=== PATIENT | male | born 2000 | race Caucasian/White ===

== ENCOUNTER 2018-05-13 11:28 | Inpatient (IN) | payer OTHER ==
[2018-05-13 14:15] VITALS: BMI 23.5
--- NOTE | 2018-05-13 20:02 | HP ---
COWS - Scale Resting Pulse: 0= OR 80 or Below Sweatin=Flushed/Facial Moisture Restless Observation: 1= Difficult to Sit Still Pupil Size: 1= Pupils >than Normal Bone or Joint Aches: 1= Mild Discomfort Runny Nose/ Eye Tearin= Runny Nose/Eyes GI Upset > 30mins: 1= Stomach Cramp Tremor Observation: 2= Slight Tremor Visible Yawning Observation: 0= None Anxiety or Irritability: 2=Irritable/Anxious Goose Flesh Skin: 0=Smooth Skin COWS Score: 12 CIWA Score - Admission Criteria OASAS Guidelines: Admission for Medically Managed Detox: Requires at least one of the followin. CIWA greater than 12 2. Seizures within the past 24 hours 3. Delirium tremens within the past 24 hours 4. Hallucinations within the past 24 hours 5. Acute intervention needed for co occurring medical disorder 6. Acute intervention needed for co occurring psychiatric disorder 7. Severe withdrawal that cannot be handled at a lower level of care (continued vomiting, continued diarrhea, abnormal vital signs) requiring intravenous medication and/or fluids 8. Admission ROS S - HPI Chief Complaint: DEPENDENT ON HEROIN, XANAX AND COCAINE ON 60 MGS. OF [facility] - LAST DOSE THIS AM Allergies/Adverse Reactions: Allergies Allergy/AdvReac Type Severity Reaction Status Date / Time No Known Allergies Allergy Verified 05/13/18 17:12 History of Present Illness: THE PT. IS REQUESTING ADMISSION TO THE DETOX UNIT AND CAME FOR H AND PE Exam Limitations: No Limitations - Ebola screening Have you traveled outside of the country in the last 21 days: No (N) Have you had contact with anyone from an Ebola affected area: No Have you been sick,other than usual withdrawal symptoms: No Do you have a fever: No - Review of Systems Constitutional: See HPI, Malaise EENT: reports: See HPI Respiratory: reports: See HPI Cardiac: reports: See HPI GI: reports: See HPI, Nausea, Abdominal cramping : reports: See HPI Musculoskeletal: reports: See HPI, Muscle Pain, Muscle Weakness Neuro: reports: See HPI, Headache, Tremors, Weakness Endocrine: reports: See HPI Hematology: reports: See HPI Psychiatric: reports: Judgement Intact, Orientated x3, Anxious, Depressed Patient History - Patient Medical History Hx Asthma: No Hx Cardiac Disorders: No Hx Hypertension: No Hx Seizures: No Hx Diabetes: No Hx Gastrointestinal Disorders: No Hx Sexually Transmitted Disorders: No Hx Human Immunodeficiency Virus (HIV): No Hx Hepatitis C: No Hx Depression: No Hx Suicide Attempt: No - Patient Surgical History Past Surgical History: No - Smoking Cessation Smoking history: Current every day smoker Have you smoked in the past 12 months: Yes Aproximately how many cigarettes per day: 10 Hx Chewing Tobacco Use: No Initiated information on smoking cessation: Yes 'Breaking Loose' booklet given: 05/13/18 - Substance & Tx. History Hx Alcohol Use: No Hx Substance Use: Yes Substance Use Type: Cocaine, Heroin, Tranquilizers Hx Substance Use Treatment: Yes - Substances Abused Alprazolam (Xanax) Route: Oral Frequency: Daily Amount used: 8-16MG Age of first use: 16 Date of Last Use: 05/13/18 Heroin Route: Injection Frequency: Daily Amount used: 7 BAGS Age of first use: 15 Date of Last Use: 05/13/18 Cocaine Route: Injection Frequency: 1-2 times per week Amount used: 1 BAG/D Age of first use: 18 Date of Last Use: 05/06/18 Family Disease History - Family Disease History Family History: Denies Admission Physical Exam BHS - Vital Signs Vital Signs: Vital Signs - 24 hr 05/13/18 14:01 Temperature 97.4 F L Pulse Rate 59 L Respiratory 18 Rate Blood Pressure 107/57 L - Physical General Appearance: Yes: Appropriately Dressed, Tremorous, Sweating, Anxious HEENTM: Yes: Hearing grossly Normal, Normocephalic, Normal Voice, MRAY, Pharynx Normal Respiratory: Yes: Chest Non-Tender, Lungs Clear, Normal Breath Sounds, No Respiratory Distress, No Accessory Muscle Use Neck: Yes: No masses,lesions,Nodules, Supple, Trachea in good position Breast: Yes: Breast Exam Deferred, Axillae without masses Cardiology: Yes: Regular Rhythm, S1, S2, Bradycardia Abdominal: Yes: Normal Bowel Sounds, Non Tender, Flat, Soft Back: Yes: Normal Inspection Extremities: Yes: Normal Capillary Refill, Normal Range of Motion, Non-Tender, Tremors Neurological: Yes: clerk supervisor II-XII NML intact, Fully Oriented, Alert, Motor Strength 5/5, Normal Response, Depressed Affect Integumentary: Yes: Normal Color, Warm, Moist, Track Deleon Lymphatic: Yes: Within Normal Limits - Addiitonal Findings: NEEDLE TRACKS ON BOTH UPPER LIMBS+ - Diagnostic (1) Heroin dependence Current Visit: Yes Status: Chronic (2) Benzodiazepine dependence Current Visit: Yes Status: Chronic (3) Cocaine dependence Current Visit: Yes Status: Chronic Qualifiers: Substance use status: uncomplicated Qualified Code(s): F14.20 - Cocaine dependence, uncomplicated (4) Methadone maintenance therapy patient Current Visit: Yes Status: Chronic (5) Cigarette nicotine dependence Current Visit: Yes Status: Acute Qualifiers: Substance use status: uncomplicated Qualified Code(s): F17.210 - Nicotine dependence, cigarettes, uncomplicated Cleared for Admission [facility] - Detox or Rehab [facility] Level of Care: Medically Supervised Detox Regimen/Protocol: Valium BHS Breath Alcohol Content Breath Alcohol Content: 0 Urine Drug Screen - Results Drug Screen Negative: No Urine Drug Screen Results: KIANNA-Cocaine, OPI-Opiates, BZO-Benzodiazepines, MTD- Methadone, FEN-Fentanyl Inpatient Rehab Admission - Rehab Decision to Admit Inpatient rehab admission?: No
[2018-05-13] MEDS ORDERED: MAGNESIUM CITRATE 300 ML BOTTLE PO PRN (20:08)
[2018-05-13] MEDS ORDERED: guaiFENesin/D-METHORPHAN HB 10 ML UNIT-DOSE CUPS PO PRN (20:08)
[2018-05-13] MEDS ORDERED: MAG HYDROX/AL HYDROX/SIMETH 30 ML UNIT-DOSE CUP PO PRN (20:08)
[2018-05-13] MEDS ORDERED: P-EPHED 60MG/TRIPROLIDI 2.5MG TABLET PO PRN (20:08)
[2018-05-13] MEDS ORDERED: MENTHOL/PHENOL 1 EACH UD MM PRN (20:08)
[2018-05-13] MEDS ORDERED: IBUPROFEN 400 MG TABLET (FP) PO PRN (20:08)
[2018-05-13] MEDS ORDERED: hydrOXYzine PAMOATE 25 MG CAPSULE (FP) PO PRN (20:08)
[2018-05-13] MEDS ORDERED: MAGNESIUM HYDROX 2400MG/30ML ORAL SUSPENSION 30 ML CUP PO PRN (20:08)
[2018-05-13] MEDS ORDERED: ACETAMINOPHEN 325 MG TABLET (FP) PO PRN (20:08)
[2018-05-13] MEDS ORDERED: LOPERAMIDE HCL 2 MG CAPSULE PO PRN (20:08)
[2018-05-13] MEDS ORDERED: diazePAM 5 MG TABLET PO ONE (21:00)
[2018-05-13] MEDS: diazePAM 5 MG TABLET PO SCH (21:54)
[2018-05-13] MEDS: THIAMINE HCL 100 MG TABLET (FP) PO SCH (22:23)
[2018-05-14] MEDS: diazePAM 5 MG TABLET PO SCH ×3 (06:48→22:13)
[2018-05-14] MEDS ORDERED: METHADONE HCL 10 MG TABLET PO SCH (07:30)
[2018-05-14] MEDS ORDERED: METHADONE HCL 40 MG DISPERSABLE TABLET ONE (08:48)
[2018-05-14] MEDS ORDERED: METHADONE HCL 10 MG TABLET ONE (08:48)
[2018-05-14] MEDS: METHADONE 40 MG, METHADONE 20 MG PO SCH (09:02)
--- NOTE | 2018-05-14 09:50 | PN ---
[facility] CIWA - CIWA Score Nausea/Vomitin-Mild Nausea/No Vomiting Muscle Tremors: 2 Anxiety: 3 Agitation: 3 Paroxysmal Sweats: 1-Minimal Palms Moist Orientation: 1-Uncertain about Date Tacttile Disturbances: 0-None Auditory Disturbances: 0-None Visual Disturbances: 0-None Headache: 0-None Present CIWA-Ar Total Score: 11 S Progress Note (SOAP) Subjective: methadone 60 mg verified given as ordered anxiety restlessness irritable trouble sleep at night Objective: 05/14/18 09:53 Vital Signs Temperature 97.3 F L 05/14/18 09:21 Pulse Rate 80 05/14/18 09:21 Respiratory Rate 18 05/14/18 09:21 Blood Pressure 99/53 L 05/14/18 09:21 O2 Sat by Pulse Oximetry (%) 05/14/18 09:53 lab pending 05/14/18 09:54 increase oral fluid to 2-3 L daily Assessment: 05/14/18 09:54 withdrawal sx Plan: continue detox
[2018-05-14 09:53] LABS: HEMATOCRIT 38.6 % (35.4-49); HEMOGLOBIN 13.1 GM/dL (11.7-16.9); MCH 28.9 pg (25.7-33.7); MCHC 33.9 g/dl (32.0-35.9); MEAN CELL VOLUME 85.5 fl (80-96); MEAN PLT VOLUME 7.5 fl (7.5-11.1); PLATELET COUNT 195 K/MM3 (134-434); RBC 4.51 M/mm3 (4.00-5.60); RDW 12.8 % (11.9-15.9); WHITE BLOOD COUNT 4.4 K/mm3 (4.0-10.0)
[2018-05-14 10:07] LABS: ALBUMIN 3.5 g/dl (3.4-5.0); ALK PHOS 86 U/L (45-117); ANION GAP 7 MMOL/L (8-16); BILIRUBIN,TOTAL 0.5 mg/dL (0.2-1); BLOOD UREA NITROGEN 11 mg/dL (7-18); CALCIUM 9.1 mg/dL (8.5-10.1); CHLORIDE 107 mmol/L (98-107); CO2 26 mmol/L (21-32); CREATININE 0.8 mg/dL (0.55-1.3); GLUCOSE,RANDOM 91 mg/dL (74-106); POTASSIUM 4.1 mmol/L (3.5-5.1); SGOT/AST 27 U/L (15-37); SGPT/ALT 26 U/L (13-61); SODIUM 139 mmol/L (136-145); TOT PROT 6.5 g/dl (6.4-8.2)
[2018-05-14] MEDS: PRENATAL VITAMINS W/ FOLIC ACID TABLET (FP) PO SCH (10:15)
[2018-05-14] MEDS: NICOTINE 14 MG/24 HOURS TOPICAL PATCH TD SCH (10:17)
[2018-05-14] MEDS: NICOTINE POLACRILEX 2 MG GUM BC PRN (10:29)
[2018-05-14] MEDS: diazePAM 5 MG TABLET PO PRN (20:10)
[2018-05-14] MEDS: THIAMINE HCL 100 MG TABLET (FP) PO SCH (22:13)
[2018-05-14] MEDS: MELATONIN 5 MG TABLETS PO PRN (22:13)
[2018-05-15] MEDS ORDERED: METHADONE HCL 10 MG TABLET ONE (04:42)
[2018-05-15] MEDS ORDERED: METHADONE HCL 40 MG DISPERSABLE TABLET ONE (04:43)
[2018-05-15] MEDS: diazePAM 5 MG TABLET PO PRN ×3 (06:05→17:29)
[2018-05-15] MEDS: METHADONE 40 MG, METHADONE 20 MG PO SCH (06:05)
[2018-05-15] MEDS: NICOTINE POLACRILEX 2 MG GUM BC PRN ×2 (07:19→17:31)
--- NOTE | 2018-05-15 10:19 | PN ---
[facility] CIWA - CIWA Score Nausea/Vomitin-No Nausea/No Vomiting Muscle Tremors: 2 Anxiety: 3 Agitation: 3 Paroxysmal Sweats: 1-Minimal Palms Moist Orientation: 0-Oriented Tacttile Disturbances: 0-None Auditory Disturbances: 0-None Visual Disturbances: 0-None Headache: 1-Very Mild CIWA-Ar Total Score: 10 S Progress Note (SOAP) Subjective: restlessness anxiety irritable tremor Objective: 05/15/18 10:18 Vital Signs Temperature 98.8 F 05/15/18 09:20 Pulse Rate 74 05/15/18 09:20 Respiratory Rate 20 05/15/18 09:20 Blood Pressure 113/52 L 05/15/18 09:20 O2 Sat by Pulse Oximetry (%) Laboratory Last Values WBC 4.4 K/mm3 (4.0-10.0) 05/14/18 07:50 RBC 4.51 M/mm3 (4.00-5.60) 05/14/18 07:50 Hgb 13.1 GM/dL (11.7-16.9) 05/14/18 07:50 Hct 38.6 % (35.4-49) 05/14/18 07:50 MCV 85.5 fl (80-96) 05/14/18 07:50 MCH 28.9 pg (25.7-33.7) 05/14/18 07:50 MCHC 33.9 g/dl (32.0-35.9) 05/14/18 07:50 RDW 12.8 % (11.9-15.9) 05/14/18 07:50 Plt Count 195 K/MM3 (134-434) 05/14/18 07:50 MPV 7.5 fl (7.5-11.1) 05/14/18 07:50 Sodium 139 mmol/L (136-145) 05/14/18 07:50 Potassium 4.1 mmol/L (3.5-5.1) 05/14/18 07:50 Chloride 107 mmol/L (98-107) 05/14/18 07:50 Carbon Dioxide 26 mmol/L (21-32) 05/14/18 07:50 Anion Gap 7 MMOL/L (8-16) L 05/14/18 07:50 BUN 11 mg/dL (7-18) 05/14/18 07:50 Creatinine 0.8 mg/dL (0.55-1.3) 05/14/18 07:50 Creat Clearance w eGFR > 60 (>60) 05/14/18 07:50 Random Glucose 91 mg/dL (74-106) 05/14/18 07:50 Calcium 9.1 mg/dL (8.5-10.1) 05/14/18 07:50 Total Bilirubin 0.5 mg/dL (0.2-1) 05/14/18 07:50 AST 27 U/L (15-37) 05/14/18 07:50 ALT 26 U/L (13-61) 05/14/18 07:50 Alkaline Phosphatase 86 U/L (45-117) 05/14/18 07:50 Total Protein 6.5 g/dl (6.4-8.2) 05/14/18 07:50 Albumin 3.5 g/dl (3.4-5.0) 05/14/18 07:50 RPR Titer Nonreactive (NONREACTIVE) 05/14/18 07:50 lab noted Assessment: 05/15/18 10:18 banzo withdrawal sx Plan: continue banzo detox
[2018-05-15] MEDS: diazePAM 5 MG TABLET PO SCH ×2 (10:35→22:04)
[2018-05-15] MEDS: PRENATAL VITAMINS W/ FOLIC ACID TABLET (FP) PO SCH (10:35)
[2018-05-15] MEDS: NICOTINE 14 MG/24 HOURS TOPICAL PATCH TD SCH (10:36)
[2018-05-15] MEDS: THIAMINE HCL 100 MG TABLET (FP) PO SCH (22:05)
[2018-05-15] MEDS: MELATONIN 5 MG TABLETS PO PRN (22:06)
[2018-05-16] MEDS ORDERED: METHADONE HCL 10 MG TABLET ONE (04:12)
[2018-05-16] MEDS ORDERED: METHADONE HCL 40 MG DISPERSABLE TABLET ONE (04:12)
[2018-05-16] MEDS: diazePAM 5 MG TABLET PO PRN ×3 (04:25→12:46)
[2018-05-16] MEDS: METHADONE 40 MG, METHADONE 20 MG PO SCH (05:16)
--- NOTE | 2018-05-16 09:55 | PN ---
S CIWA - CIWA Score Nausea/Vomitin-No Nausea/No Vomiting Muscle Tremors: 1-None Visible, but [place] Anxiety: 1-Mildly Anxious Agitation: 1-Slight > Activity Paroxysmal Sweats: 1-Minimal Palms Moist Orientation: 1-Uncertain about Date Tacttile Disturbances: 0-None Auditory Disturbances: 0-None Visual Disturbances: 0-None Headache: 2-Mild CIWA-Ar Total Score: 7 BHS Progress Note (SOAP) Subjective: feeling better able to tolerate food and fluid well sleep through the night talking about aftercare with staff forehead 1 mm superficial skin abrasion no bleeding bacitracine ointment keep area clean and dry mild tremor less sweating Objective: 05/16/18 09:55 Vital Signs Temperature 97.6 F 05/16/18 09:52 Pulse Rate 103 H 05/16/18 09:52 Respiratory Rate 16 05/16/18 09:52 Blood Pressure 109/75 05/16/18 09:52 O2 Sat by Pulse Oximetry (%) Laboratory Last Values WBC 4.4 K/mm3 (4.0-10.0) 05/14/18 07:50 RBC 4.51 M/mm3 (4.00-5.60) 05/14/18 07:50 Hgb 13.1 GM/dL (11.7-16.9) 05/14/18 07:50 Hct 38.6 % (35.4-49) 05/14/18 07:50 MCV 85.5 fl (80-96) 05/14/18 07:50 MCH 28.9 pg (25.7-33.7) 05/14/18 07:50 MCHC 33.9 g/dl (32.0-35.9) 05/14/18 07:50 RDW 12.8 % (11.9-15.9) 05/14/18 07:50 Plt Count 195 K/MM3 (134-434) 05/14/18 07:50 MPV 7.5 fl (7.5-11.1) 05/14/18 07:50 Sodium 139 mmol/L (136-145) 05/14/18 07:50 Potassium 4.1 mmol/L (3.5-5.1) 05/14/18 07:50 Chloride 107 mmol/L (98-107) 05/14/18 07:50 Carbon Dioxide 26 mmol/L (21-32) 05/14/18 07:50 Anion Gap 7 MMOL/L (8-16) L 05/14/18 07:50 BUN 11 mg/dL (7-18) 05/14/18 07:50 Creatinine 0.8 mg/dL (0.55-1.3) 05/14/18 07:50 Creat Clearance w eGFR > 60 (>60) 05/14/18 07:50 Random Glucose 91 mg/dL (74-106) 05/14/18 07:50 Calcium 9.1 mg/dL (8.5-10.1) 05/14/18 07:50 Total Bilirubin 0.5 mg/dL (0.2-1) 05/14/18 07:50 AST 27 U/L (15-37) 05/14/18 07:50 ALT 26 U/L (13-61) 05/14/18 07:50 Alkaline Phosphatase 86 U/L (45-117) 05/14/18 07:50 Total Protein 6.5 g/dl (6.4-8.2) 05/14/18 07:50 Albumin 3.5 g/dl (3.4-5.0) 05/14/18 07:50 RPR Titer Nonreactive (NONREACTIVE) 05/14/18 07:50 lab noted Assessment: 05/16/18 09:55 mild withdrawal sx Plan: continue detox
[2018-05-16] MEDS: PRENATAL VITAMINS W/ FOLIC ACID TABLET (FP) PO SCH (10:08)
[2018-05-16] MEDS: NICOTINE 14 MG/24 HOURS TOPICAL PATCH TD SCH (10:09)
[2018-05-16] MEDS: diazePAM 5 MG TABLET PO SCH (10:09)
[2018-05-16] MEDS: BACITRACIN 0.9 GM PACKET TP SCH ×2 (12:45→13:09)
[2018-05-16] MEDS: NICOTINE POLACRILEX 2 MG GUM BC PRN (12:46)
--- NOTE | 2018-05-16 13:24 | DS ---
[facility] Detox Discharge Summary Admission Date: 05/13/18 Discharge Date: 05/16/18 - History Present History: Sedative Dependence Additional Comments: 18 years old male admitted on 05/13/18 for benzo withdrawal stabilization feeling better after lunch and napping alert no acute distress denies suicidal ideation patient preferred return to his methadone program Pertinent Past History: encourage bring in medication list and medication bottles to aftercare appointments - Physical Exam Results Vital Signs: Vital Signs Temperature 97.6 F 05/16/18 09:52 Pulse Rate 103 H 05/16/18 09:52 Respiratory Rate 16 05/16/18 09:52 Blood Pressure 109/75 05/16/18 09:52 O2 Sat by Pulse Oximetry (%) Pertinent Admission Physical Exam Findings: benzo withdrawal sx Laboratory Last Values WBC 4.4 K/mm3 (4.0-10.0) 05/14/18 07:50 RBC 4.51 M/mm3 (4.00-5.60) 05/14/18 07:50 Hgb 13.1 GM/dL (11.7-16.9) 05/14/18 07:50 Hct 38.6 % (35.4-49) 05/14/18 07:50 MCV 85.5 fl (80-96) 05/14/18 07:50 MCH 28.9 pg (25.7-33.7) 05/14/18 07:50 MCHC 33.9 g/dl (32.0-35.9) 05/14/18 07:50 RDW 12.8 % (11.9-15.9) 05/14/18 07:50 Plt Count 195 K/MM3 (134-434) 05/14/18 07:50 MPV 7.5 fl (7.5-11.1) 05/14/18 07:50 Sodium 139 mmol/L (136-145) 05/14/18 07:50 Potassium 4.1 mmol/L (3.5-5.1) 05/14/18 07:50 Chloride 107 mmol/L (98-107) 05/14/18 07:50 Carbon Dioxide 26 mmol/L (21-32) 05/14/18 07:50 Anion Gap 7 MMOL/L (8-16) L 05/14/18 07:50 BUN 11 mg/dL (7-18) 05/14/18 07:50 Creatinine 0.8 mg/dL (0.55-1.3) 05/14/18 07:50 Creat Clearance w eGFR > 60 (>60) 05/14/18 07:50 Random Glucose 91 mg/dL (74-106) 05/14/18 07:50 Calcium 9.1 mg/dL (8.5-10.1) 05/14/18 07:50 Total Bilirubin 0.5 mg/dL (0.2-1) 05/14/18 07:50 AST 27 U/L (15-37) 05/14/18 07:50 ALT 26 U/L (13-61) 05/14/18 07:50 Alkaline Phosphatase 86 U/L (45-117) 05/14/18 07:50 Total Protein 6.5 g/dl (6.4-8.2) 05/14/18 07:50 Albumin 3.5 g/dl (3.4-5.0) 05/14/18 07:50 RPR Titer Nonreactive (NONREACTIVE) 05/14/18 07:50 lab noted - Treatment Hospital Course: Detox Protocol Followed, Detoxed Safely, Responded well, Discharged Condition Good, Rehab Referral Accepted Patient has Accepted a Rehab Referral to: methadone maintenance program - Medication Discharge Medications: Ambulatory Orders Methadone [Dolophine -] 60 mg PO DAILY 05/13/18 - Diagnosis (1) Nicotine dependence Current Visit: Yes Status: Acute Qualifiers: Nicotine product type: cigarettes Substance use status: in withdrawal Qualified Code(s): F17.213 - Nicotine dependence, cigarettes, with withdrawal (2) Benzodiazepine dependence Current Visit: Yes Status: Acute (3) Methadone maintenance therapy patient Current Visit: Yes Status: Chronic - AMA Did Patient Leave Against Medical Advice: No
[2018-05-16 13:28] VITALS: BP 118/65; PULSE 70; TEMP 97.2
[2018-05-17] MEDS ORDERED: diazePAM 5 MG TABLET PO SCH (10:00)
== END 2018-05-16 13:29 | disposition home or self-care (01) | DRG 773 ==
LOC: YASAS 11:28 → Y3N 20:07
PROVIDERS: ADMIT Surgery; ATTEND Surgery
PROC: HZ2ZZZZ Detoxification Services for Substance Abuse Treatment (ICD-10-PCS; principal; 2018-05-13)
DX: F13.230 Sedative, hypnotic or anxiolytic dependence with withdrawal, uncomplicated (principal); F11.20 Opioid dependence, uncomplicated; F14.20 Cocaine dependence, uncomplicated; F17.213 Nicotine dependence, cigarettes, with withdrawal; R00.1 Bradycardia, unspecified
CPT/HCPCS: 36415; 80053; 85027; 86593

== ENCOUNTER 2018-09-27 09:33 | Inpatient (IN) | payer OTHER ==
[2018-09-27 10:56] VITALS: BMI 23.6
--- NOTE | 2018-09-27 13:22 | HP ---
CIWA Score - Admission Criteria OASAS Guidelines: Admission for Medically Managed Detox: Requires at least one of the followin. CIWA greater than 12 2. Seizures within the past 24 hours 3. Delirium tremens within the past 24 hours 4. Hallucinations within the past 24 hours 5. Acute intervention needed for co occurring medical disorder 6. Acute intervention needed for co occurring psychiatric disorder 7. Severe withdrawal that cannot be handled at a lower level of care (continued vomiting, continued diarrhea, abnormal vital signs) requiring intravenous medication and/or fluids 8. Admission ROS S - HPI Chief Complaint: cocaine and opioid rehab Allergies/Adverse Reactions: Allergies Allergy/AdvReac Type Severity Reaction Status Date / Time No Known Allergies Allergy Verified 09/27/18 10:48 History of Present Illness: Patient is a 18 yo male with hx of intravenous heroin dependence and occasional cocaine use is here for rehab. Reports hx of heroin use since 14 yo, currently uses 4 - 5 bags of heroin at this time Patient is linked to [facility] on methadone 30 mg last dose today, reports inconsistent attendance to methadone program, reports attending the program in the last two days, dose verified. Reports hx unintentional overdose x1, three years ago last opiod detox [facility] May 2018 PMHX: denies Psych: Denies Denies SI/HI Exam Limitations: No Limitations - Ebola screening Have you traveled outside of the country in the last 21 days: No Have you had contact with anyone from an Ebola affected area: No - Review of Systems Constitutional: Changes in sleep, Unintentional Wgt. Loss EENT: reports: No Symptoms Reported Respiratory: reports: No Symptoms reported Cardiac: reports: No Symptoms Reported GI: reports: No Symptoms Reported : reports: No Symptoms Reported Musculoskeletal: reports: No Symptoms Reported Integumentary: reports: No Symptoms Reported Neuro: reports: No Symptoms reported Endocrine: reports: No Symptoms Reported Hematology: reports: No Symptoms Reported Psychiatric: reports: Orientated x3, Anxious Other Systems: Reviewed and Negative Patient History - Patient Medical History Hx Anemia: No Hx Asthma: No Hx Chronic Obstructive Pulmonary Disease (COPD): No Hx Cancer: No Hx Cardiac Disorders: No Hx Congestive Heart Failure: No Hx Hypertension: No Hx Hypercholesterolemia: No Hx Pacemaker: No HX Cerebrovascular Accident: No Hx Seizures: No Hx Dementia: No Hx Diabetes: No Hx Gastrointestinal Disorders: No Hx Liver Disease: No Hx Genitourinary Disorders: No Hx Sexually Transmitted Disorders: No Hx Renal Disease (ESRD): No Hx Thyroid Disease: No Hx Human Immunodeficiency Virus (HIV): No (last 03/20 negative) Hx Hepatitis C: No Hx Depression: No Hx Suicide Attempt: No Hx Bipolar Disorder: No Hx Schizophrenia: No - Patient Surgical History Past Surgical History: No Hx Appendectomy: Yes (IN 2010) - PPD History Previous Implant?: No Documented Results: Negative w/proof Date: 05/15/18 Results: 0 mm PPD to be Administered?: No - Smoking Cessation Smoking history: Current every day smoker Have you smoked in the past 12 months: Yes Aproximately how many cigarettes per day: 10 Hx Chewing Tobacco Use: No Initiated information on smoking cessation: Yes 'Breaking Loose' booklet given: 09/27/18 - Substance & Tx. History Hx Alcohol Use: No Hx Substance Use: Yes Substance Use Type: Cocaine, Heroin Hx Substance Use Treatment: Yes (Last detox [facility] May 2018) - Substances abused Heroin Substance route: Injection Frequency: Daily Amount used: 4- 5 bags a day Age of first use: 14 Date of last use: 09/27/18 Cocaine Substance route: Injection Frequency: 1-3 times last 30 days Amount used: 100$ Age of first use: 17 Date of last use: 09/25/18 Family Disease History - Family Disease History Family History: Denies Admission Physical Exam [facility] - Vital Signs Vital Signs: Vital Signs - 24 hr 09/27/18 10:49 Temperature 98.7 F Pulse Rate 71 Respiratory 18 Rate Blood Pressure 109/61 - Physical General Appearance: Yes: Appropriately Dressed, Thin, Anxious HEENTM: Yes: EOMI, Hearing grossly Normal, Normal ENT Inspection, Normocephalic , Normal Voice, MARY, Pharynx Normal, Tm's normal Respiratory: Yes: Chest Non-Tender, Lungs Clear, Normal Breath Sounds, No Respiratory Distress, No Accessory Muscle Use Neck: Yes: Within Normal Limits Breast: Yes: Breast Exam Deferred Cardiology: Yes: Regular Rhythm, Regular Rate Abdominal: Yes: Normal Bowel Sounds, Non Tender, Flat, Soft Genitourinary: Yes: Within Normal Limits Back: Yes: Normal Inspection Musculoskeletal: Yes: full range of Motion, Gait Steady, Pelvis Stable Extremities: Yes: Normal Capillary Refill, Normal Inspection, Normal Range of Motion, Non-Tender Neurological: Yes: 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-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 NML intact, Fully Oriented, Alert, Motor Strength 5/5, Normal Response, Depressed Affect Integumentary: Yes: Normal Color, Dry, Warm, Track Deleon (bilateral forearms no s/s infection present) Lymphatic: Yes: Within Normal Limits - Diagnostic (1) Opioid dependence on agonist therapy Current Visit: Yes Status: Acute (2) Cocaine abuse Current Visit: Yes Status: Acute (3) Anxious mood Current Visit: Yes Status: Acute (4) Intravenous drug user Current Visit: Yes Status: Acute (5) Nicotine dependence Current Visit: Yes Status: Acute Qualifiers: Nicotine product type: cigarettes Substance use status: in withdrawal Qualified Code(s): F17.213 - Nicotine dependence, cigarettes, with withdrawal (6) Weight loss Current Visit: Yes Status: Acute Breathalyzer - Breathalyzer Breathalyzer: 0 Urine Drug Screen - Test Device Lot number: [id number] Expiration date: 05/31/18 - Control Is test valid?: Yes - Results Drug screen NEGATIVE: No Urine drug screen results: KIANNA-Cocaine, MOP-Opiates, MTD-Methadone Inpatient Rehab Admission - Rehab Decision to Admit Inpatient rehab admission?: Yes - Initial Determination Are CD services needed?: Yes Free of communicable disease: Yes Not in need of hospitalization: Yes - Rehab Admission Criteria Previous failed treatment: Yes Poor recovery environment: Yes Comorbidities: Yes Lacks judgement: Yes Patient is meeting Inpatient Rehab admission criteria:: Yes
[2018-09-27] MEDS ORDERED: IBUPROFEN 400 MG TABLET (FP) PO PRN (13:25)
[2018-09-27] MEDS ORDERED: P-EPHED 60MG/TRIPROLIDI 2.5MG TABLET PO PRN (13:25)
[2018-09-27] MEDS ORDERED: MENTHOL/PHENOL 1 EACH UD MM PRN (13:25)
[2018-09-27] MEDS ORDERED: MAGNESIUM HYDROX 2400MG/30ML ORAL SUSPENSION 30 ML CUP PO PRN (13:25)
[2018-09-27] MEDS ORDERED: MAGNESIUM CITRATE 300 ML BOTTLE PO PRN (13:25)
[2018-09-27] MEDS ORDERED: guaiFENesin 200 MG/10 ML 10 ML UNIT-DOSE CUPS PO PRN (13:25)
[2018-09-27] MEDS ORDERED: LOPERAMIDE HCL 2 MG CAPSULE PO PRN (13:25)
[2018-09-27] MEDS ORDERED: ACETAMINOPHEN 325 MG TABLET (FP) PO PRN (13:25)
[2018-09-27 17:04] LABS: HEMOGLOBIN 12.9 GM/dL (11.7-16.9); MCH 28.5 pg (25.7-33.7); MCHC 33.1 g/dl (32.0-35.9); MEAN CELL VOLUME 85.9 fl (80-96); MEAN PLT VOLUME 7.1 fl (7.5-11.1); PLATELET COUNT 241 K/MM3 (134-434); RBC 4.54 M/mm3 (4.00-5.60); RDW 12.7 % (11.9-15.9); WHITE BLOOD COUNT 6.4 K/mm3 (4.0-10.0)
[2018-09-27 17:10] LABS: ALBUMIN 3.8 g/dl (3.4-5.0); BILIRUBIN,TOTAL 0.5 mg/dL (0.2-1); BLOOD UREA NITROGEN 12.1 mg/dL (7-18); CALCIUM 8.9 mg/dL (8.5-10.1); CREATININE 0.9 mg/dL (0.55-1.3); POTASSIUM 4.4 mmol/L (3.5-5.1); TOT PROT 7.4 g/dl (6.4-8.2)
[2018-09-27 17:15] LABS: EPI CELLS 1.7 /HPF (0-5/HPF); HYALINE CASTS 3 /lpf (0-8); PH,URINE 5.5 (5.0-8.0); URINE APPEARANCE CLEAR; URINE BACTERIA 1.2 /hpf (NEGATIVE); URINE BILIRUBIN NEGATIVE (NEGATIVE); URINE COLOR YELLOW; URINE GLUCOSE (UA) NEGATIVE (NEGATIVE); URINE KETONE NEGATIVE (NEGATIVE); URINE LEUK ESTERASE TRACE (NEGATIVE); URINE NITRITE NEGATIVE (NEGATIVE); URINE PROTEIN NEGATIVE (NEGATIVE); URINE RBC 0 /hpf (0-4); URINE UROBILINOGEN 0.2 mg/dL (0.2-1.0); URINE WBC 3 /hpf (0-5)
[2018-09-27] MEDS: THIAMINE HCL 100 MG TABLET (FP) PO SCH (21:10)
[2018-09-27] MEDS ORDERED: MELATONIN 5 MG TABLETS PO PRN (22:00)
[2018-09-28] MEDS: METHADONE HCL 10 MG TABLET PO SCH (05:51)
[2018-09-28] MEDS: NICOTINE POLACRILEX 2 MG GUM BC PRN ×3 (07:18→20:05)
--- NOTE | 2018-09-28 10:35 | CONSULT ---
[facility] Psychiatric Consult - Data Date of interview: 09/28/18 Admission source: Self-referred Identifying data: Mr Graves is a 18 years old single male, unemployed wwith no source of income, living with family seeking rehab treatment for opioid and cocaine Substance Abuse History: Reports history of heroin and cocaine use. Refer to addiction couselor's summary for further information Medical History: Significant for history of appendectomy in 2010. Patient is on methadone 30 mg/day from [facility]. Smokes 10 cigarettes daily Psychiatric History: Denies history of previous psychiatric treament. However, reports sleeping poorly for the past 6 weeks. Physical/Sexual Abuse/Trauma History: Denies history of emotional, physical or sexual abuse as well as DV relationship Additional Comment: Reports history of multiple previous arrests including one felony coviction. Denies being on parole/probation at present Mental Status Exam - Mental Status Exam Alert and Oriented to: Time, Place, Person Cognitive Function: Fair Patient Appearance: Well Groomed Mood: Anxious Affect: Appropriate Patient Behavior: Cooperative Speech Pattern: Clear Voice Loudness: Normal Thought Process: Intact, Goal Oriented Hallucinations: Denies Suicidal Ideation: Denies Homicidal Ideation: Denies Insight/Judgement: Poor Sleep: Poorly Appetite: Good Muscle strength/Tone: Normal Gait/Station: Normal Psychiatric Findings - Problem List ([place] 1, 2,3) (1) Substance-induced anxiety disorder Current Visit: Yes Status: Acute (2) Substance-induced sleep disorder Current Visit: Yes Status: Acute (3) Cocaine abuse Current Visit: Yes Status: Acute (4) Opioid dependence on agonist therapy Current Visit: Yes Status: Chronic (5) Nicotine dependence Current Visit: Yes Status: Chronic Qualifiers: Nicotine product type: cigarettes Substance use status: in withdrawal Qualified Code(s): F17.213 - Nicotine dependence, cigarettes, with withdrawal - Initial Treatment Plan Initial Treatment Plan: 1) Start Belsomra 10 mg po HS prn for insomnia. 2) Continue inpatient rehabilitation
[2018-09-28] MEDS: PRENATAL VITAMINS W/ FOLIC ACID TABLET (FP) PO SCH (10:52)
[2018-09-28] MEDS: NICOTINE 14 MG/24 HOURS TOPICAL PATCH TD SCH (10:53)
[2018-09-28] MEDS: MAG HYDROX/AL HYDROX/SIMETH 30 ML UNIT-DOSE CUP PO PRN (20:04)
[2018-09-28] MEDS: SUVOREXANT 10 MG TABLET PO PRN (21:41)
[2018-09-28] MEDS: THIAMINE HCL 100 MG TABLET (FP) PO SCH (21:41)
[2018-09-28] MEDS: hydrOXYzine PAMOATE 50 MG CAPSULE (FP) PO PRN (21:41)
[2018-09-29] MEDS: METHADONE HCL 10 MG TABLET PO SCH (06:13)
[2018-09-29] MEDS: hydrOXYzine PAMOATE 50 MG CAPSULE (FP) PO PRN ×3 (09:24→21:07)
[2018-09-29] MEDS: PRENATAL VITAMINS W/ FOLIC ACID TABLET (FP) PO SCH (09:24)
[2018-09-29] MEDS: NICOTINE POLACRILEX 2 MG GUM BC PRN ×3 (09:24→18:25)
[2018-09-29] MEDS: NICOTINE 14 MG/24 HOURS TOPICAL PATCH TD SCH (09:49)
[2018-09-29] MEDS: MAG HYDROX/AL HYDROX/SIMETH 30 ML UNIT-DOSE CUP PO PRN (18:25)
[2018-09-29] MEDS: THIAMINE HCL 100 MG TABLET (FP) PO SCH (21:06)
[2018-09-29] MEDS: SUVOREXANT 10 MG TABLET PO PRN (21:08)
[2018-09-30] MEDS: METHADONE HCL 10 MG TABLET PO SCH (06:02)
[2018-09-30] MEDS: hydrOXYzine PAMOATE 50 MG CAPSULE (FP) PO PRN ×3 (09:02→22:14)
[2018-09-30] MEDS: NICOTINE POLACRILEX 2 MG GUM BC PRN ×3 (09:02→18:59)
[2018-09-30] MEDS: PRENATAL VITAMINS W/ FOLIC ACID TABLET (FP) PO SCH (10:26)
[2018-09-30] MEDS: NICOTINE 14 MG/24 HOURS TOPICAL PATCH TD SCH (10:26)
[2018-09-30] MEDS: MAG HYDROX/AL HYDROX/SIMETH 30 ML UNIT-DOSE CUP PO PRN (14:41)
[2018-09-30] MEDS: THIAMINE HCL 100 MG TABLET (FP) PO SCH (22:13)
[2018-09-30] MEDS: SUVOREXANT 10 MG TABLET PO PRN (22:14)
[2018-10-01] MEDS: METHADONE HCL 10 MG TABLET PO SCH (05:46)
[2018-10-01 06:43] VITALS: BP 111/64; PULSE 73; TEMP 98.4
[2018-10-01] MEDS: hydrOXYzine PAMOATE 50 MG CAPSULE (FP) PO PRN (08:40)
[2018-10-01] MEDS: NICOTINE POLACRILEX 2 MG GUM BC PRN (08:42)
[2018-10-01] MEDS: PRENATAL VITAMINS W/ FOLIC ACID TABLET (FP) PO SCH (10:08)
[2018-10-01] MEDS: NICOTINE 14 MG/24 HOURS TOPICAL PATCH TD SCH (10:08)
--- NOTE | 2018-10-01 12:21 | PN ---
S Progress Note Note: Patient continues to report sleeping poorly despite taking Belsomra 10 mg/hs. Will increase Belsomra dosage to 15 mg/hs
--- NOTE | 2018-10-01 12:34 | PN ---
[facility] Progress Note Note: PATIENT SEEN FOR C/O INSOMNIA AND REQUESTED TO HAVE BELSOMRA ADJUSTED. ALSO REQUESTED TO DECREASE METHADONE DAILY DOSE OF 30MG WHICH PATIENT CURRENTLY TAKES FOR OPIOD DEPENDENCE. [facility] AT [phone]. PATIENT STATES HE DOES NOT HAVE OPIOD CRAVINGS AND WOULD LIKE TO STOP METHADONE GRADUALLY. Vital Signs Temperature 98.4 F 10/01/18 06:42 Pulse Rate 73 10/01/18 06:42 Respiratory Rate 18 10/01/18 06:42 Blood Pressure 111/64 10/01/18 06:42 O2 Sat by Pulse Oximetry (%) Laboratory Tests 09/27/18 09/27/18 09/27/18 13:40 13:40 13:40 WBC 6.4 RBC 4.54 Hgb 12.9 Hct 39.0 MCV 85.9 MCH 28.5 MCHC 33.1 RDW 12.7 Plt Count 241 D MPV 7.1 L Sodium 136 Potassium 4.4 Chloride 102 Carbon Dioxide 32 Anion Gap 3 L BUN 12.1 Creatinine 0.9 Est GFR (CKD-EPI)AfAm 142.00 Est GFR (CKD-EPI)NonAf 122.52 Random Glucose 93 Calcium 8.9 Total Bilirubin 0.5 AST 18 ALT 27 Alkaline Phosphatase 84 Total Protein 7.4 Albumin 3.8 Urine Color Urine Appearance Urine pH Ur Specific Brandt Urine Protein Urine Glucose (UA) Urine Ketones Urine Blood Urine Nitrite Urine Bilirubin Urine Urobilinogen Ur Leukocyte Esterase Urine WBC (Auto) Urine RBC (Auto) Urine Casts (Auto) U Epithel Cells (Auto) Urine Bacteria (Auto) RPR Titer Nonreactive 09/27/18 15:30 WBC RBC Hgb Hct MCV MCH MCHC RDW Plt Count MPV Sodium Potassium Chloride Carbon Dioxide Anion Gap BUN Creatinine Est GFR (CKD-EPI)AfAm Est GFR (CKD-EPI)NonAf Random Glucose Calcium Total Bilirubin AST ALT Alkaline Phosphatase Total Protein Albumin Urine Color Yellow Urine Appearance Clear Urine pH 5.5 Ur Specific Brandt 1.018 Urine Protein Negative Urine Glucose (UA) Negative Urine Ketones Negative Urine Blood Negative Urine Nitrite Negative Urine Bilirubin Negative Urine Urobilinogen 0.2 Ur Leukocyte Esterase Trace Urine WBC (Auto) 3 Urine RBC (Auto) 0 Urine Casts (Auto) 3 U Epithel Cells (Auto) 1.7 Urine Bacteria (Auto) 1.2 RPR Titer PE: ALERT AND ORIENTED X 3 SKIN WARM AND DRY +PERRLA EOMS INTACT BL EXT NO TREMORS, AMB AD MARK A/P: MMTP INSOMNIA PSYCH CONSULT ORDERED CINDER [employer] OPERATOR SPOKE WITH DR. SILAS WOOD AT [facility] TO INFORM OF PATIENTS REQUEST TO DECREASE METHADONE. DR. WOOD INFORMED CINDER [employer]ANE OPERATOR THAT PATIENT IS ON 30MG DAILY DUE TO NONCOMPLIANCE WITH ATTENDING PROGRAM AND FAILURE TO PROVIDE STABLE/CLEAN URINE TOXICOLOGIES. MD HAS BEEN PROVIDING CARE TO PATIENT SINCE 2018 AND DOES NOT AGREE WITH DECREASING METHADONE AT THIS TIME AND DOES NOT RECOMMEND PATIENT BE STARTED ON SUBOXONE ALTERNATIVE TREATMENT. DR. WOOD RECOMMENDED FOR PATIENT TO FOLLOW UP WITH [facility] UPON D/C FOR EVALUATION AND TREATMENT. COUNSELOR SAMUEL BILLY UPDATED ON DISCUSSION AND IS TO DISCUSS D /C PLANNING WITH PATIENT. WILL CONTINUE MTD ORDERED
--- NOTE | 2018-10-01 13:06 | PN ---
[facility] Progress Note Note: Notified by RN patient requested to sign out AMA.Patient seen by provider and informed of discussion with Dr. Robledo. Patient encouraged to continue rehab treatment and explained risk factors of relapse, overdose and potential but patient refused to stay in treatment. Patient states he will follow up with [facility] tomorrow morning and continued with AMA process. Patient is medically stable at this time and denies SI/HI. Patient refused Narcan Kit. Vital Signs Temperature 98.4 F 10/01/18 06:42 Pulse Rate 73 10/01/18 06:42 Respiratory Rate 18 10/01/18 06:42 Blood Pressure 111/64 10/01/18 06:42 O2 Sat by Pulse Oximetry (%) Vital Signs Temperature 98.4 F 10/01/18 06:42 Pulse Rate 73 10/01/18 06:42 Respiratory Rate 18 10/01/18 06:42 Blood Pressure 111/64 10/01/18 06:42 O2 Sat by Pulse Oximetry (%) Laboratory Tests 09/27/18 09/27/18 09/27/18 13:40 13:40 13:40 WBC 6.4 RBC 4.54 Hgb 12.9 Hct 39.0 MCV 85.9 MCH 28.5 MCHC 33.1 RDW 12.7 Plt Count 241 D MPV 7.1 L Sodium 136 Potassium 4.4 Chloride 102 Carbon Dioxide 32 Anion Gap 3 L BUN 12.1 Creatinine 0.9 Est GFR (CKD-EPI)AfAm 142.00 Est GFR (CKD-EPI)NonAf 122.52 Random Glucose 93 Calcium 8.9 Total Bilirubin 0.5 AST 18 ALT 27 Alkaline Phosphatase 84 Total Protein 7.4 Albumin 3.8 Urine Color Urine Appearance Urine pH Ur Specific [place] Urine Protein Urine Glucose (UA) Urine Ketones Urine Blood Urine Nitrite Urine Bilirubin Urine Urobilinogen Ur Leukocyte Esterase Urine WBC (Auto) Urine RBC (Auto) Urine Casts (Auto) U Epithel Cells (Auto) Urine Bacteria (Auto) RPR Titer Nonreactive 09/27/18 15:30 WBC RBC Hgb Hct MCV MCH MCHC RDW Plt Count MPV Sodium Potassium Chloride Carbon Dioxide Anion Gap BUN Creatinine Est GFR (CKD-EPI)AfAm Est GFR (CKD-EPI)NonAf Random Glucose Calcium Total Bilirubin AST ALT Alkaline Phosphatase Total Protein Albumin Urine Color Yellow Urine Appearance Clear Urine pH 5.5 Ur Specific [place] 1.018 Urine Protein Negative Urine Glucose (UA) Negative Urine Ketones Negative Urine Blood Negative Urine Nitrite Negative Urine Bilirubin Negative Urine Urobilinogen 0.2 Ur Leukocyte Esterase Trace Urine WBC (Auto) 3 Urine RBC (Auto) 0 Urine Casts (Auto) 3 U Epithel Cells (Auto) 1.7 Urine Bacteria (Auto) 1.2 RPR Titer Ambulatory Orders Methadone [Dolophine -] 30 mg PO DAILY 09/27/18
[2018-10-01] MEDS ORDERED: SUVOREXANT 15 MG TABLET PO PRN (22:00)
[2018-10-01] MEDS ORDERED: SUVOREXANT 10 MG TABLET PO PRN (22:00)
== END 2018-10-01 13:30 | disposition left against medical advice (07) | DRG 770 ==
LOC: YASAS 09:33 → Y3W 14:57
PROVIDERS: ADMIT Neuromusculoskeletal Medicine & OMM; ATTEND Neuromusculoskeletal Medicine & OMM
PROC: HZ42ZZZ Group Counseling for Substance Abuse Treatment, Cognitive-Behavioral (ICD-10-PCS; principal; 2018-09-27)
DX: F11.20 Opioid dependence, uncomplicated (principal); F14.20 Cocaine dependence, uncomplicated; F17.210 Nicotine dependence, cigarettes, uncomplicated; F19.280 Other psychoactive substance dependence with psychoactive substance-induced anxiety disorder; F19.282 Other psychoactive substance dependence with psychoactive substance-induced sleep disorder; G47.00 Insomnia, unspecified; R63.4 Abnormal weight loss
CPT/HCPCS: 36415; 80053; 81003; 85027; 86593